=== PATIENT | female | born 1940 | race Caucasian/White ===

== ENCOUNTER 2019-08-17 11:18 | Emergency (ER) | payer MEDICARE, SELFPAY ==
[2019-08-17 11:33] VITALS: BP 171/75; PULSE 74; RESP 18; TEMP 36.3; O2SAT 100
--- NOTE | 2019-08-17 11:37 | ED.GENADULT ---
HPI - General Adult General Chief complaint: Skin/Abscess/Foreign Body Stated complaint: Rash Lower left leg Time Seen by Provider: 08/17/19 11:37 Source: patient and RN notes reviewed Mode of arrival: ambulatory Limitations: no limitations History of Present Illness HPI narrative: 79-year-old female presents with complaints of bilateral dorsal wrist and hand with raised, red, itching, burning, rash to for the past 5 days. Radha noticed the rash 1-2 days after working in her yard. Rash to LT lateral lower leg for the past 2.5 months. Initially started off in a circular shape the size of a nickel has grown and spread. Intermittent yellow drainage and itching. Denies new detergent or personal hygiene products. No new foods or medications. No swelling or bleeding. Denies fever or chills, headaches, weakness, fatigue, malagia, facial swelling, or tongue swelling. Denies chest pain or dyspnea. Denies cough, rhinorrhea, congestion, sore throat, nausea, vomiting, abdominal pain, and diarrhea. Tolerating po intake well. Denies recent traveling. Denies concern for COVID-19 or exposures been home since [id number] order except for essential household needs and returned home. Some parts of this dictation were generated by voice recognition software and may contain typographical and/or grammatical inaccuracies. Related Data Home Medications Medication Instructions Recorded Confirmed aspirin 81 mg tablet,delayed 81 mg PO DAILY 08/14/19 release ergocalciferol (vitamin D2) 1,250 1,250 mcg PO WEEKLY 08/14/19 mcg (50,000 unit) capsule propranolol 20 mg tablet 20 mg PO TID tablet 08/14/19 Allergies Allergy/AdvReac Type Severity Reaction Status Date / Time No Known Allergies Allergy Verified 08/14/19 09:17 Review of Systems Review of Systems: Narrative: CONSTITUTIONAL: Denies fever, chills, sweats. EYES: Denies visual changes, redness, discharge. ENT: Denies rhinorrhea, congestion, sore throat, otalgia. CARDIOVASCULAR: Denies chest pain, palpitations, edema. RESPIRATORY: Denies dyspnea, wheezing, cough. GASTROINTESTINAL: Denies abdominal pain, nausea, vomiting, diarrhea. GENITOURINARY: Denies dysuria, hematuria, abnormal discharge. SKIN: Complains of red, burning, and itching rash to bilateral dorsal wrist and hands. LT lower lateral leg with red, itching, intermittent yellow drainage rash. MUSCULOSKELETAL: Denies acute back pain, joint pain, or myalgia. NEUROLOGIC: Denies numbness or focal weakness. PSYCHIATRIC: Denies anxiety or depression. All other systems reviewed are negative, except as documented in HPI. [facility] Past Medical History Medical History (Updated 08/18/19 @ 00:00 by Ammy Bey) Age related osteoporosis Anxiety Benign familial tremor Essential (primary) hypertension IFG (impaired fasting glucose) Mixed hyperlipidemia SVT (supraventricular tachycardia) Surgical History Surgical History (Updated 08/17/19 @ 11:55 by MARISA Mcleod) History of cardiac radiofrequency ablation Family History Family History Other Cerebrovascular accident Family history of cardiovascular disease Hypertension Social History Social History (Updated 08/17/19 @ 11:55 by MARISA Mcleod) Smoking status: Never smoker Second hand tobacco smoke exposure: No Alcohol intake: current Substance use: never Living arrangements: with family Occupation/Education: retired Gender identity (if verbalized by the patient): Female Comments At time of signature, agree with nurse past medical, surgical, social, and family history. There is no relevant family history pertinent to the presenting complaint. Exam Narrative: Exam Narrative: GENERAL: This is a well-nourished, well-developed patient, in no apparent distress. Talks in full sentences and ambulates with steady gait without dyspnea. HEAD: normocephalic, atraumatic.
[2019-08-17 12:15] VITALS: BP 158/90
== END 2019-08-17 12:15 | disposition home or self-care (01) ==
PROVIDERS: Emergency Provider Nurse Practitioner Family; PCP Internal Medicine
DX: L01.00 Impetigo, unspecified (principal); L23.7 Allergic contact dermatitis due to plants, except food; M81.0 Age-related osteoporosis without current pathological fracture; I10 Essential (primary) hypertension; E78.2 Mixed hyperlipidemia; Z79.82 Long term (current) use of aspirin
CPT/HCPCS: 99213; G0463

== ENCOUNTER 2020-02-10 11:25 | Outpatient (CLI) | payer MEDICARE, SELFPAY ==
[2020-02-10 11:56] LABS: Basophils Absolute Auto 0.1 K/mm3 (0.0-0.1); Basophils Percent Auto 1.1 % (0.2-1.2); Eosinophils Absolute Auto 0.2 K/mm3 (0-0.3); Eosinophils Percent Auto 2.1 % (0-4.4); Hematocrit 40.6 % (37.0-47.0); Hemoglobin 13.6 g/dL (12.0-15.0); Immature Granulocyte Absolute 0.04 K/mm3 (0.00-0.031); Immature Granulocyte Percent A 0.5 % (0-0.5); Lymphocytes Absolute Auto 1.83 K/mm3 (0.9-3.2); Lymphocytes Percent Auto 24.2 % (18.3-44.2); Mean Corpuscular HGB Conc 33.5 g/dl (32-36); Mean Corpuscular Hemoglobin 31.9 pg (26-34); Mean Corpuscular Volume 95.1 fl (80-100); Mean Platelet Volume 8.9 fl (7.4-10.4); Monocytes Absolute Auto 0.4 K/mm3 (0.1-0.6); Monocytes Percent Auto 5.7 % (2.6-8.5); Neutrophils Percent Auto 66.4 % (45.5-73.1); Platelet Count Result 249 k/mm3 (150-375); Red Blood Count 4.27 M/mm3 (4.2-5.4); Red Cell Distribution Width 14.2 % (11.5-14.5); White Blood Count 7.6 K/mm3 (4.5-10.0)
[2020-02-10 12:09] LABS: Alanine Aminotransferase 18 U/L (4-35); Albumin Level 4.7 g/dL (3.5-5.1); Alkaline Phosphatase 85 U/L (38-126); Anion Gap 9 mmol/L (8-16); Aspartate Amino Transferase 27 U/L (14-36); Bilirubin,Total 0.6 mg/dL (0.2-1.3); Blood Urea Nitrogen 17 mg/dL (7-17); Calcium 9.7 mg/dL (8.4-10.2); Carbon Dioxide 30 mmol/L (22-30); Chloride 101 mmol/L (98-107); Cholesterol 176 mg/dL (0-200); Estimated Glomerular Filt Rate 60; Glucose 128 mg/dL (65-105); HDL Direct 85 mg/dL; Potassium 4.1 mmol/L (3.4-5.0); Sodium 140 mmol/L (137-145); Triglycerides 111 mg/dL (<150)
[2020-02-10 12:19] LABS: LDL Cholesterol Direct 74 mg/dL
[2020-02-10 12:49] LABS: Hemoglobin A1C 6.1 % (<5.7)
[2020-02-10 13:25] LABS: Vitamin D 25 Hydroxy 84.6 ng/mL
[2020-02-10 13:28] LABS: Creatinine Urine 203.6 mg/dL
[2020-02-10 13:33] LABS: MALB Creatinine Ratio 39.4 mg/g (0-30); Microalbumin Urine Random 80.2 mg/L (0-16.7)
== END 2020-02-10 11:26 | disposition home or self-care (01) ==
PROVIDERS: PCP Internal Medicine; Visit Provider Internal Medicine
DX: R73.01 Impaired fasting glucose (principal); I10 Essential (primary) hypertension; E55.9 Vitamin D deficiency, unspecified
CPT/HCPCS: 36415; 80053; 80061; 82043; 82306; 83036; 84443; 85025